=== PATIENT | female | born 1945 | race Caucasian/White ===

== ENCOUNTER → 2016-11-21 | Outpatient (CLI) | payer MEDICARE, OTHER | END | disposition home or self-care (01) | LOC: CDC 10:11 | DX: Z01.810 Encounter for preprocedural cardiovascular examination (principal); C43.61 Malignant melanoma of right upper limb, including shoulder; R94.31 Abnormal electrocardiogram [ECG] [EKG] | CPT/HCPCS: 93000 ==

== ENCOUNTER 2016-12-03 06:42 | Day surgery (SDC) | payer OTHER ==
[~2016-12-03] VITALS: Ht 165.1 cm; Wt 77.1 kg
[~2016-12-03 06:42] MED LIST: CARDIZEM60 MG PO; MAXZIDE 37.5 M1 EACH PO; PRILOSEC10 MG PO
[2016-12-03 08:12] VITALS: BP 124/76
[2016-12-03 13:05] VITALS: BP 145/79
[2016-12-03 13:29] VITALS: BP 130/80
== END 2016-12-03 13:30 | disposition home or self-care (01) ==
LOC: SDC 06:42 → NUC 06:42 → SDC 09:00
PROC: 07B50ZX Excision of Right Axillary Lymphatic, Open Approach, Diagnostic (ICD-10-PCS; principal; 2016-12-03)
DX: C43.61 Malignant melanoma of right upper limb, including shoulder (principal); I10 Essential (primary) hypertension; Z79.82 Long term (current) use of aspirin; Z88.0 Allergy status to penicillin
CPT/HCPCS: 78195; 78999; 88305; 88341 TC; 88342 TC; A9541; J1885; J3010; J3370; S0020